=== PATIENT | female | born 1975 | race Caucasian/White ===

== ENCOUNTER 2018-11-27 22:02 | Emergency (ER) | payer MEDICARE ==
[~2018-11-27] VITALS: Ht 182.9 cm; Wt 112.5 kg
[2018-11-27 22:50] LABS: BILIRUBIN,URINE NEGATIVE (NEGATIVE); CLARITY,URINE CLEAR (CLEAR); COLOR,URINE YELLOW (YELLOW); KETONES,URINE NEGATIVE (NEGATIVE); LEUKOCYTE ESTERASE ,URINE NEGATIVE (NEGATIVE); NITRITE,URINE NEGATIVE (NEGATIVE); PROTEIN,URINE DIPSTICK NEGATIVE (NEGATIVE); URINE UROBILINOGEN 0.2 mg/dL (0.2 - 1)
[2018-11-27 22:52] LABS: BACTERIA,URINE FEW /HPF; EPITHELIAL CELLS,URINE FEW /LPF; RBC,URINE 0-5 /HPF (0-5); WBC,URINE (MAN) 0-5 /HPF (0-5)
[2018-11-27 22:53] LABS: PREGNANCY TEST, URINE NEGATIVE (NEGATIVE)
--- NOTE | 2018-11-27 23:08 | Diagnostic Imaging Report ---
ANKLE 3 + VIEWS RIGHT - 3 views HISTORY: Pain COMPARISON: None available. FINDINGS: Bones: No acute displaced fracture. Osseous alignment is within normal limits. Incidentally seen os trigonum and plantar calcaneal enthesophyte. Joints: The joint spaces are well-maintained. Soft tissues: The soft tissues appear unremarkable. IMPRESSION: No acute radiographic abnormality. Signed by: Dr. Vasyl Collado MD on 11/27/2018 11:04 PM
--- NOTE | 2018-11-27 23:10 | Diagnostic Imaging Report ---
ELBOW RIGHT COMPLETE - 3 views HISTORY: Pain COMPARISON: None available. FINDINGS: Bones: No acute displaced fracture. Osseous alignment is within normal limits. Joints: The joint spaces are well-maintained. Soft tissues: The soft tissues appear unremarkable. IMPRESSION: No acute radiographic abnormality. Signed by: Dr. Vasyl Collado MD on 11/27/2018 11:06 PM
--- NOTE | 2018-11-27 23:14 | NUR ---
reports having pain to r elbow approx 2 mos, r foot 1 mos, dysuria x several days. states took monistat without relief of dysuria. denies vaginal bleeding or discharge. awake alert skin w/d resp nonlab. nad noted.
[2018-11-27] MEDS ORDERED: AZITHROMYCIN 250 MG TAB PO STA (23:19)
[2018-11-27] MEDS ORDERED: AZITHROMYCIN 250 MG TAB ONE (23:23)
[2018-11-27] MEDS ORDERED: CEFTRIAXONE SOD 250 MG VIAL ONE (23:23)
[2018-11-27] MEDS ORDERED: LIDOCAINE HCL 1% 2 ML AMP ONE (23:23)
[2018-11-27] MEDS ORDERED: CEFTRIAXONE SOD 250 MG VIAL IM ONE (23:30)
== END 2018-11-28 00:07 | disposition home or self-care (01) ==
LOC: ER 22:02
DX: R30.0 Dysuria (principal); R10.2 Pelvic and perineal pain; M25.521 Pain in right elbow; M25.571 Pain in right ankle and joints of right foot; W19.XXXA Unspecified fall, initial encounter; F17.210 Nicotine dependence, cigarettes, uncomplicated
CPT/HCPCS: 73080; 73610; 73630; 81001; 81025; 99283; J0696; J2001

== ENCOUNTER 2019-11-07 08:03 | Emergency (ER) | payer MEDICARE ==
[~2019-11-07] VITALS: Ht 182.9 cm; Wt 112.5 kg
--- OUTSIDE RECORDS SUMMARY | 2019-11-07 08:17 | XMS REPORT ---
Author Author [facility] Address Unknown Phone Unavailable Care Team Providers Care Perfect Bind Machine Operator Name Role Phone Leticia LARIOS Unavailable Unavailable Problems This patient has no known problems. Allergies, Adverse Reactions, Alerts This patient has no known allergies or adverse reactions. Medications This patient has no known medications. Encounters Start Date/Time End Date/Time Encounter Type Admission Type Attending Clinicians Care Facility Care Department Encounter ID 2019-06-15 15:58:00 2019-06-15 15:58:00 Emergency E [facility] [id number] Results Test Description Test Time Test Comments Text Results Atomic Results Result Comments ELBOW RIGHT COMPLETE 2018-11-27 23:06:00 [place] [address] Patient Name: KAYA DE LA VEGA MR #: [id number] : 1975 Age/Sex: 43/F Req #: [id number] Adm Physician: Ordered by: FANNIE LARIOS MD Report #: [id number] Location: ER Room/Bed: Procedure: [id number] DX/ELBOW RIGHT COMPLETE Exam Date: 11/27/18 Exam Time: 2244 REPORT STATUS: Signed ELBOW RIGHT COMPLETE - 3 views HISTORY: Pain COMPARISON: None available. FINDINGS: Bones: No acute displaced fracture. Osseous alignment is within normal limits. Joints: The joint spaces are well-maintained. Soft tissues: The soft tissues appear unremarkable. IMPRESSION: No acute radiographic abnormality. Signed by: Dr. Vasyl Villa MD on 11/27/2018 11:06 PM Dictated By: VASYL VILLA MD 05 Transcribed By: RODRIGO on 11/27/182305 COPY TO: FANNIE LARIOS MD FOOT RIGHT COMPLETE 2018-11-27 23:04:00 [place] [address] Patient Name: KAYA DE LA VEGA MR #: [id number] : 1975 Age/Sex: 43/F Req #: [id number] Adm Physician: Ordered by: FANNIE LARIOS MD Report #: [id number] Location: ER Room/Bed: Procedure: [id number] DX/FOOT RIGHT COMPLETE Exam Date: 11/27/18 Exam Time: 2245 REPORT STATUS: Signed FOOT RIGHT COMPLETE - 3 views HISTORY: Pain COMPARISON: None available. FINDINGS: Bones: No acute displaced fracture. Osseous alignment is within normal limits. Joints: The joint spaces are well-maintained. Soft tissues: The soft tissues appear unremarkable. IMPRESSION: No acute radiographic abnormality. Signed by: Dr. Vasyl Villa MD on 11/27/2018 11:06 PM Dictated By: VASYL VILLA MD 05 Transcribed By: RODRIGO on 11/27/182305 COPY TO: FANNIE LARIOS MD ANKLE 3 + VIEWS RIGHT 2018-11-27 23:03:00 [place] [address] Patient Name: KAYA DE LA VEGA MR #: [id number] : 1975 Age/Sex: 43/F Req #: [id number] Adm Physician: Ordered by: FANNIE LARIOS MD Report #: [id number] Location: Room/Bed: Procedure: [id number] DX/ANKLE 3 + VIEWS RIGHT Exam Date: 11/27/18 Exam Time: 5 REPORT STATUS: Signed ANKLE 3 + VIEWS RIGHT - 3 views HISTORY: Pain COMPARISON: None available. FINDINGS: Bones: No acute displaced fracture. Osseous alignment is within normal limits. Incidentally seen os trigonum and plantar calcaneal enthesophyte. Joints: The joint spaces are well-maintained. Soft tissues: The soft tissues appear unremarkable. IMPRESSION: No acute radiographic abnormality. Signed by: Dr. Vasyl Villa MD on 11/27/2018 11:04 PM Dictated By: VASYL VILLA MD 03 Transcribed By: RODRIGO on 11/27/182303 COPY TO: FANNIE LARIOS MD
[2019-11-07] MEDS ORDERED: IBUPROFEN 600 MG TAB PO STA (08:20)
[2019-11-07] MEDS ORDERED: CYCLOBENZAPRINE HCL 10 MG TAB PO ONE (08:30)
[2019-11-07 09:10] LABS: BILIRUBIN,URINE NEGATIVE (NEGATIVE); CLARITY,URINE CLEAR (CLEAR); COLOR,URINE YELLOW (YELLOW); KETONES,URINE NEGATIVE (NEGATIVE); LEUKOCYTE ESTERASE ,URINE SMALL (NEGATIVE); NITRITE,URINE NEGATIVE (NEGATIVE); PROTEIN,URINE DIPSTICK NEGATIVE (NEGATIVE); URINE UROBILINOGEN 0.2 mg/dL (0.2 - 1)
[2019-11-07 09:21] LABS: BACTERIA,URINE FEW /HPF; EPITHELIAL CELLS,URINE MODERATE /LPF; MUCUS,URINE FEW (RARE)
--- NOTE | 2019-11-07 10:21 | Diagnostic Imaging Report ---
EXAMINATION: SP LUMBAR, COMPLETE MIN 4VW INDICATION: Back pain COMPARISON: None FINDINGS: No acute fracture or dislocation. Alignment is anatomic. Vertebral body heights are well-maintained. No substantial degenerative change. Oblique images demonstrate no evidence of spondylolysis. Nonobstructive bowel gas pattern. No free air. IMPRESSION: No acute osseous injury. Signed by: Andi Kendall MD on 11/07/2019 10:17 AM
[2019-11-07] MEDS ORDERED: NAPROXEN250 MG PO (11:12)
[2019-11-07] MEDS ORDERED: ROBAXIN-750750 MG PO (11:12)
== END 2019-11-07 11:46 | disposition home or self-care (01) ==
LOC: ER 08:03
DX: S39.012A Strain of muscle, fascia and tendon of lower back, initial encounter (principal); F17.200 Nicotine dependence, unspecified, uncomplicated; X50.0XXA Overexertion from strenuous movement or load, initial encounter
CPT/HCPCS: 72110; 81001; 81025; 99283

== ENCOUNTER 2019-12-26 09:13 | Emergency (ER) | payer MEDICARE ==
[~2019-12-26] VITALS: Ht 182.9 cm; Wt 112.5 kg
[~2019-12-26 09:13] MED LIST: NAPROXEN250 MG PO; ROBAXIN-750750 MG PO
--- OUTSIDE RECORDS SUMMARY | 2019-12-26 09:15 | XMS REPORT ---
Author Author [facility] t Organization [facility] Address [address] [place] [address] Phone Unavailable Care Team Providers Care Product Management Specialist Name Role Phone NOE PARIKH MD PCP LATISHA GUO Unavailable Payers Payer Name Policy Type Policy Number Effective Date Expiration Date S irene Medicare A & B [id number] 2005 00:00:00 [facility] Problems This patient has no known problems. Allergies, Adverse Reactions, Alerts Allergy Name Allergy Type Status Severity Reaction(s) Onset Date Inacti ve Date Treating Clinician Comments Source Sulfa (Sulfonamide Antibiotics) Allergy to Substance Active 2018-11-27 00:00:00 [facility] Medications Ordered Medication Name Filled Medication Name Start Date Stop Da te Current Medication? Ordering Clinician Indication Dosage Frequency Signature (SIG) Comments Components Source Methocarbamol (Robaxin-750) 750 Mg Tablet Methocarbamo l (Robaxin-750) 750 Mg Tablet 2019-11-07 00:00:00 Yes Latisha Guo Do 750 Every 8 Hours as needed for Muscle Spasms [facility] Naproxen 250 Mg Tablet Naproxen 250 Mg Tablet 2019-11-07 00:00:00 Yes Latisha Reederr Do 250 Every 4 Hours [facility] Procedures This patient has no known procedures. Encounters Start Date/Time End Date/Time [facility]counter Type [facility] ID Source 2019-11-07 08:03:00 2019-11-07 11:46:00 Departed Emergency Room 1 LATISHA GUO [facility] [id number] [facility] 2019-06-15 15:58:00 2019-06-15 15:58:00 Emergency E [id number] 2018-11-27 22:02:00 2018-11-28 00:07:00 Departed Emergency Room 1 LATISHA LARIOS [facility] [id number] [facility] 2016-06-13 14:12:00 2016-06-13 14:12:00 Outpatient [facility] [id number] [employer] 2016-06-05 14:01:00 2016-06-05 14:01:00 Outpatient [facility] [id number] [employer] Results Test Description Test Time Test Comments Results Result Comments Source SP LUMBAR, COMPLETE MIN 4VW 2019-11-07 10:16:00 [place] [address] Patient Name: KAYA DE LA VEGA MR #: [id number] : 1975 Age/Sex: 44/F Req #: [id number] Adm Physician: Ordered by: LATISHA GUO DO Report #: [id number] Location: ER Room/Bed: Procedure: [id number] DX/SP LUMBAR, COMPLETE MIN 4VW Exam Date: 11/07/19 Exam Time: 0900 REPORT STATUS: Signed EXAMINATION: SP LUMBAR, COMPLETE MIN 4VW INDICATION: Back pain COMPARISON: None FINDINGS: No acute fracture or dislocation. Alignment is anatomic. Vertebral body heights are well-maintained. No substantial degenerative change. Oblique images demonstrate no evidence of spondylolysis. Nonobstructive bowel gas pattern. No free air. IMPRESSION: No acute osseous injury. Signed by: Geronimo Hutson MD on 11/07/2019 10:17 AM Dictated By: GERONIMO HUTSON MD 1017 Transcribed By: RODRIGO on 11/07/19 1017 COPY TO: LATISHA GUO DO Urine WBC 2019-11-07 09:21:00 Test Item Urine WBC (test code = 5821-4) 6-10 0-5 [facility] [id number] 09:21:00* Test Item Value Reference Range Interpretation Comments Urine RBC (test code = 85432-9) 6-10 0-5 [facility] Rkgzhugr6107-05-90 09:21:00* Test Item Value Reference Range Interpretation Comments Urine Bacteria (test code = 44521-0) FEW NONE [facility] Epithelial Ukloh5756-03-74 09:21:00 * Test Item Value Reference Range Interpretation Comments Urine Epithelial Cells (test code = 90508-2) MODERATE NONE [facility] Qlrsx9364-60-28 09:21:00* Test Item Value Reference Range Interpretation Comments Urine Mucus (test code = 8247-9) FEW RARE H [facility] Dcowv4996-20-14 09:10:00* Test Item Value Reference Range Interpretation Comments Urine Color (test code = 5778-6) YELLOW YELLOW [facility] Srlkrhl8013-03-36 09:10:00* Test Item Value Reference Range Interpretation Comments Urine Clarity (test code = 58847-8) CLEAR CLEAR [facility] Specific Mdrrvle0951-78-97 09:10:00 * Test Item Value Reference Range Interpretation Comments Urine Specific [place] (test code = 5811-5) 1.015 1.010-1.02 5 [facility] [id number] 09:10:00* Test Item Value Reference Range Interpretation Comments Urine pH (test code = 06588-9) 6.5 5-7 [facility] Leukocyte Prhvgeuo1925-77-39 09:10:00* Test Item Value Reference Range Interpretation Comments Urine Leukocyte Esterase (test code = 5799-2) SMALL NEGATIVE [facility] Slhmfid3044-43-77 09:10:00* Test Item Value Reference Range Interpretation Comments Urine Nitrite (test code = 44004-6) NEGATIVE NEGATIVE [facility] Rllkinc5638-81-39 09:10:00* Test Item Value Reference Range Interpretation Comments Urine Protein (test code = 5804-0) NEGATIVE NEGATIVE [facility] Glucose (UA)2019-11-07 09:10:00* Test Item Value Reference Range Interpretation Comments Urine Glucose (UA) (test code = 2349-9) NEGATIVE NEGATIVE [facility] Lpohfrj0035-62-85 09:10:00* Test Item Value Reference Range Interpretation Comments Urine Ketones (test code = 65109-6) NEGATIVE NEGATIVE [facility] Ctzljoafugqd9041-11-78 09:10:00* Test Item Value Reference Range Interpretation Comments Urine Urobilinogen (test code = 46057-6) 0.2 0.2-1 [facility] Wnbjenpmj4636-60-18 09:10:00* Test Item Value Reference Range Interpretation Comments Urine Bilirubin (test code = 1978-6) NEGATIVE NEGATIVE [facility] Iicwv2238-51-81 09:10:00* Test Item Value Reference Range Interpretation Comments Urine Blood (test code = 06776-2) NEGATIVE NEGATIVE [facility] Cdiw6469-13-70 08:47:00* Test Item Value Reference Range Interpretation Comments Urine Test (test code = 2106-3) NEGATIVE NEGATIVE [facility] QDCMGGKP9264-48-34 23:06:00 [place] [address] Patient Name: KAYA DE LA VEGA MR #: [id number] : 1975 Age/Sex: 43/F Req #: [id number] Adm Physician: Ordered by: LATISHA LARIOS MD Report #: [id number] Location: ER Room/Bed: Procedure: [id number] DX/ELBOW RIGHT COMPLETE Exam Date: 11/27/18 Exam T marilu: 2245 REPORT STATUS: Signed ELBOW RIGHT COMPLETE - 3 views HISTORY: Pain COMPARISON: None available. FINDINGS: Bones: No acute displaced fracture. Osseous alignme nt is within normal limits. Joints: The joint spaces are well-maintained. Soft tissues: The soft tissues appear unremarkable. IMPRESSION: No acute radiographic abnormality. Signed by: Dr. Vasyl Villa MD on 11:06 PM Dictated By: VASYL VILLA MD 05 Transcribed By: RODRIGO on 11/27/182305 COPY TO: LATISHA LARIOS MD FOOT RIGHT VZGGCQKI6859-70-61 23:04:00 [place] [address] Patient Name: KAYA DE LA VEGA MR #: [id number] : 1975 Age/Sex: 43/F Req #: [id number] Adm Physician: Ordered by: LATISHA LARIOS MD Report #: [id number] Location: ER Room/Bed: Procedure: [id number] DX/FOOT RIGHT COMPLETE Exam Date: 11/27/18 Exam Ti me: 2245 REPORT STATUS: Signed F OOT RIGHT COMPLETE - 3 views HISTORY: Pain COMPARISON: None available. FINDINGS: Bones: No acute displaced fracture. Osseous alignment is within normal limits. Joints: The joint spaces are well-maintained. Soft tissues: The soft tissues appear unremarkable. IMPRESSION: No acute radiographic abnormality. Signed by: Dr. Vasyl Villa MD on 11/27 11:06 PM Dictated By: VASYL VILLA MD 05 Transcribed By: RODRIGO on 11/27/182305 COPY TO: LATISHA LARIOS MD ANKLE 3 + VIEWS CSHHX3965-15-14 23:03:00 [place] [address] Patient Name: KAYA DE LA VGEA MR #: [id number] : 1975 Age/Sex: 43/F Req #: [id number] Adm Physician: Ordered by: LATISHA LARIOS MD Report #: [id number] Location: ER Room/Bed: Procedure: [id number] DX/ANKLE 3 + VIEWS RIGHT Exam Date: 11/27/18 Exam Time: 2244 REPORT STATUS: Signed ANKLE 3 + VIEWS RIGHT - 3 views HISTORY: Pain COMPARISON: None availabl e. FINDINGS: Bones: No acute displaced fracture. Osseous align ment is within normal limits. Incidentally seen os trigonum and plantar [place] eal enthesophyte. Joints: The joint spaces are well-maintained. Soft tissues: The soft tissues appear unremarkable. IMPRESSION: No acute radiographic abnormality. Signed by: Dr. Vasyl Villa MD on 11/27/2018 11 :04 PM Dictated By: VASYL VILLA MD 03 Transcribed By: RODRIGO on 11/27/182303 COPY TO : LATISHA LARIOS MD Urine Itwy0716-01-51 22:53:00* Test Item Value Reference Range Interpretation Comments Urine Test (test code = 2106-3) NEGATIVE NEGATIVE [facility] Czypr9055-05-30 22:52:00* Test Item Value Reference Range Interpretation Comments Urine Color (test code = 5778-6) YELLOW YELLOW [facility] Uduqhsv7806-01-76 22:52:00* Test Item Value Reference Range Interpretation Comments Urine Clarity (test code = 94982-3) CLEAR CLEAR [facility] Craefha0744-48-82 22:52:00 * Test Item Value Reference Range Interpretation Comments Urine Specific [place] (test code = 5811-5) 1.010 1.010-1.02 5 [facility] [id number] 22:52:00* Test Item Value Reference Range Interpretation Comments Urine pH (test code = 13889-3) 6 5-7 [facility] Leukocyte Bkrzefbn4982-62-60 22:52:00* Test Item Value Reference Range Interpretation Comments Urine Leukocyte Esterase (test code = 5799-2) NEGATIVE NEGATIVE [facility] Jhsfgxz8295-25-20 22:52:00* Test Item Value Reference Range Interpretation Comments Urine Nitrite (test code = 43012-9) NEGATIVE NEGATIVE [facility] Bejlaop7939-67-00 22:52:00* Test Item Value Reference Range Interpretation Comments Urine Protein (test code = 5804-0) NEGATIVE NEGATIVE [facility] Glucose (UA)2018-11-27 22:52:00* Test Item Value Reference Range Interpretation Comments Urine Glucose (UA) (test code = 2349-9) NEGATIVE NEGATIVE [facility] Xtysdun1519-29-66 22:52:00* Test Item Value Reference Range Interpretation Comments Urine Ketones (test code = 21785-7) NEGATIVE NEGATIVE [facility] Hemksciwgaxa7039-53-67 22:52:00* Test Item Value Reference Range Interpretation Comments Urine Urobilinogen (test code = 45651-4) 0.2 0.2-1 [facility] Ksvkaqbnc0591-29-33 22:52:00* Test Item Value Reference Range Interpretation Comments Urine Bilirubin (test code = 1978-6) NEGATIVE NEGATIVE [facility] Rprbx7004-79-28 22:52:00* Test Item Value Reference Range Interpretation Comments Urine Blood (test code = 18697-1) NEGATIVE NEGATIVE [facility] [id number] 22:52:00* Test Item Value Reference Range Interpretation Comments Urine WBC (test code = 5821-4) 0-5 0-5 [facility] QNV8785-44-81 22:52:00* Test Item Value Reference Range Interpretation Comments Urine RBC (test code = 88727-2) 0-5 0-5 [facility] Zqkmyget8218-66-92 22:52:00* Test Item Value Reference Range Interpretation Comments Urine Bacteria (test code = 02046-6) FEW NONE [facility] Epithelial Lxdvq1190-24-27 22:52:00 * Test Item Value Reference Range Interpretation Comments Urine Epithelial Cells (test code = 12071-5) FEW NONE [facility]
--- OUTSIDE RECORDS SUMMARY | 2019-12-26 09:15 | XMS REPORT ---
Author Author ADAMA OLGUIN Organization [employer] Address Unknown Phone Unavailable Care Team Providers Care Paralegal Legal Secretary Name Role Phone HELLEN OLGUIN CP Unavailable Allergies No Known Allergies Problems No Known Problems Medications No Known Medications Results No Known Results Summary Purpose [employer] Submission
--- OUTSIDE RECORDS SUMMARY | 2019-12-26 09:15 | XMS REPORT ---
Author Author ADAMA OLGUIN Organization [employer] Address Unknown Phone Unavailable Care Team Providers Care Bar Back Name Role Phone HELLEN OLGUIN CP Unavailable Allergies No Known Allergies Problems No Known Problems Medications No Known Medications Results No Known Results Summary Purpose [employer] Submission
[2019-12-26 09:47] LABS: BASOPHILS # (AUTO) 0.1 (0.0-0.1); BASOPHILS % 0.7 % (0.0-1.0); EOSINOPHILS # (AUTO) 0.3 (0.0-0.4); EOSINOPHILS % 3.2 % (0.0-6.0); HEMATOCRIT 45.4 % (34.2-44.1); HEMOGLOBIN 15.2 g/dL (12.0-16.0); LYMPHOCYTES % 30.5 % (18.0-39.1); MEAN CORPUSCULAR HEMOGLOBIN 30.6 pg (28-32); MEAN CORPUSCULAR HGB CONC 33.5 g/dL (31-35); MEAN CORPUSCULAR VOLUME 91.3 fL (81-99); MONOCYTES # (AUTO) 0.8 (0.2-0.8); MONOCYTES % 7.7 % (4.4-11.3); NEUTROPHILS # (AUTO) 5.7 (2.1-6.9); NEUTROPHILS % 57.3 % (38.7-80.0); PLATELET COUNT 303 x10e3/uL (140-360); RED BLOOD COUNT 4.97 x10e6/uL (3.6-5.1); RED CELL DISTRIBUTION WIDTH 14.3 % (11.7-14.4)
[2019-12-26] MEDS ORDERED: MORPHINE SULFATE INJ 4 MG/ML INJ 1ML IV STA (10:09)
[2019-12-26] MEDS ORDERED: ONDANSETRON HCL INJ 2MG/ML 2ML 2 MG/ML VIAL IV STA (10:09)
[2019-12-26 10:12] LABS: ALBUMIN 3.6 g/dL (3.5-5.0); ALBUMIN/GLOBULIN RATIO 0.9 (0.8-2.0); ANION GAP 14.4 mmol/L (8-16); CALCIUM 9.7 mg/dL (8.4-10.2); CREATININE, SERUM 1.11 mg/dL (0.57-1.11); POTASSIUM 3.4 mmol/L (3.5-5.1)
--- NOTE | 2019-12-26 10:20 | NUR ---
PER MD ORDER CTA CHEST FOR R/O AORTIC DISSECTION
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
[2019-12-26] MEDS ORDERED: SODIUM CHLORIDE 0.9% 50ML 50 ML ONE (11:20)
[2019-12-26] MEDS ORDERED: IOPAMIDOL 370 MG/ML 200 ML INFUS..BTL INJ ONE (11:20)
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
[2019-12-26] MEDS ORDERED: KETOROLAC TROMETHAMINE 30 MG/ML VIAL IV STA (11:59)
--- NOTE | 2019-12-26 12:09 | Diagnostic Imaging Report ---
CTA of the chest. History: Chest pain. Comparison: Chest radiograph from earlier 12/26/2019. Technique: Multidetector CT scanning of the chest was performed from the level of the apices to the upper abdomen before and after after intravenous administration of contrast according to the CTA chest protocol. Coronal and sagittal multiplanar reformations as well as three-dimensional reformations of the thoracic aorta were obtained. RADIATION DOSE: Total DLP: 1147.25 mGy*cm Dose modulation, iterative reconstruction, and/or weight based adjustment of the mA/kV was utilized to reduce the radiation dose to as low as reasonably achievable. FINDINGS: Vascular: There is a left-sided aortic arch with 3 branch vessels which are widely patent. The thoracic aorta is normal in course and caliber. There is no evidence for aneurysmal dilatation, dissection, intramural hematoma, or other acute aortic pathology. [place] dimension of the thoracic aorta are as follows: Proximal ascending thoracic aorta: 2.8 cm. Mid ascending aorta: 2.9 cm. Proximal descending thoracic aorta: 2.2 cm Mid descending thoracic aorta: 2.1 cm. Descending thoracic aorta at the diaphragmatic hiatus: 1.9 cm. The pulmonary artery measures 3.2 cm in maximal caliber. Although this examination was not tailored for detailed evaluation of the pulmonary arteries, no central filling defect is identified to suggest pulmonary thromboembolism. Nonvascular: The thyroid and remaining visualized structures within the base of the neck demonstrate no significant abnormalities. The heart is not enlarged. There is no abnormal pericardial fluid present. There is no abnormal axillary, mediastinal, or hilar lymph node enlargement. The trachea and proximal airways are patent. There is minimal dependent density/atelectasis present. A noncalcified pulmonary micronodule is identified within the superior segment of the right lower lobe measuring 4 mm (noncontrast axial image 33). A calcified granuloma is noted within the superior segment of the right lower lobe (noncontrast axial image 35). Examination of the lungs otherwise demonstrate no evidence for consolidation, pneumothorax, mass, or pleural effusion. There is partially visualized cortical scarring noted within the right kidney. Limited views of the upper abdomen otherwise the straight no significant abnormalities. The osseous structures demonstrate no evidence for acute fracture or destructive process. The extrathoracic soft tissues are unremarkable. IMPRESSION: Unremarkable CTA of the chest without evidence for thoracic aortic aneurysm, dissection, or other acute aortic pathology. 4 mm pulmonary micronodule identified within the right lower lobe. In a low-risk patient, no follow-up examination is warranted. In a high-risk patient, consider [address] follow-up examination. No other acute intrathoracic process identified. Signed by: Dr. Edison Worthy MD on 12/26/2019 12:06 PM
[2019-12-26 12:23] VITALS: BP 100/70
[2019-12-26] MEDS ORDERED: LIDOCAINE 4% PATCH TP SCH (12:40)
[2019-12-26] MEDS ORDERED: HYDROCODONE/APAP 10MG-325MG TAB PO ONE (12:40)
== END 2019-12-26 12:40 | disposition home or self-care (01) ==
LOC: ER 09:13
DX: R07.89 Other chest pain (principal); V43.52XA Car driver injured in collision with other type car in traffic accident, initial encounter; Y92.488 Other paved roadways as the place of occurrence of the external cause; I10 Essential (primary) hypertension; E78.5 Hyperlipidemia, unspecified; E03.9 Hypothyroidism, unspecified; F17.210 Nicotine dependence, cigarettes, uncomplicated
CPT/HCPCS: 36415; 71046; 71275; 80053; 84702; 85025; 99284; J1885; J2270; J2405; Q9967

== ENCOUNTER → 2021-05-14 | Outpatient (CLI) | payer MEDICARE | LOC: MAMMO 15:25 | PROVIDERS: ATTEND Emergency Medicine | DX: Z12.31 Encounter for screening mammogram for malignant neoplasm of breast (principal); M54.2 Cervicalgia; M54.50 Low back pain, unspecified | CPT/HCPCS: 72050; 72110; 77067 ==

== ENCOUNTER → 2024-04-21 | Outpatient (REF) | payer MEDICARE ==
[~2024-04-21] MED LIST changes: +CYCLOBENZAPRINE5 MG PO; +NAPROSYN500 MG PO
== END ==
LOC: MAMMO 12:01
PROVIDERS: ATTEND Emergency Medicine
DX: N63.10 Unspecified lump in the right breast, unspecified quadrant (principal)